=== PATIENT | female | born 1965 | race Caucasian/White ===

== ENCOUNTER 2016-10-14 08:23 | Day surgery (SDC) | payer OTHER ==
[2016-10-13 11:47] VITALS: Ht 157.5 cm; Wt 78.0 kg
[~2016-10-14] VITALS: Ht 157.5 cm; Wt 78.0 kg
[~2016-10-14 08:23] MED LIST: [UNRECOGNIZED DRUG - CODE] PO
[2016-10-14] MEDS ORDERED: GABA100C14 PO (09:23)
[2016-10-14] MEDS ORDERED: ATOR10TA65 PO (09:23)
[2016-10-14] MEDS ORDERED: LACTATED RINGER'S 1,000 ML IV* SCH (09:30)
[2016-10-14 09:38] VITALS: BP 138/66; PULSE 78; RESP 20
[2016-10-14 09:55] LABS: BASOPHILS % 0.5 % (0.0-2.0); EOSINOPHILS # 0.1 10^3/ul (0.0-0.5); EOSINOPHILS % 1.6 % (0.0-7.0); HEMATOCRIT 37.7 % (37.0-47.0); HEMOGLOBIN 13.2 g/dl (12.0-16.0); LYMPHOCYTES # 1.6 10^3/ul (0.8-2.9); LYMPHOCYTES % 30.2 % (15.0-51.0); MEAN CORPUSCULAR HEMOGLOBIN 31.1 pg (29.0-33.0); MEAN CORPUSCULAR VOLUME 88.9 fl (82.0-101.0); MONOCYTE # 0.3 10^3/ul (0.3-0.9); NEUTROPHIL # 3.3 10^3/ul (1.6-7.5); NEUTROPHILS % 61.7 % (39.0-77.0); PLATELET COUNT 313 10^3/UL (140-440); RED BLOOD COUNT 4.24 10^6/ul (4.20-5.40); UNCORRECTED WBC 5.3 10^3/ul (4.8-10.8); WHITE BLOOD COUNT 5.3 10^3/ul (4.8-10.8)
[2016-10-14 10:10] LABS: ALBUMIN 4.8 g/dl (3.3-4.9)
[2016-10-14 10:13] LABS: ALBUMIN/GLOBULIN RATIO 1.33; BILIRUBIN,INDIRECT 0.4 mg/dl (0-1.1); BILIRUBIN,TOTAL 0.4 mg/dl (0.2-1.3); CONDITION 1; TOTAL PROTEIN 8.4 g/dl (6.1-8.1)
[2016-10-14 10:27] LABS: CALCIUM 9.6 mg/dl (8.4-10.2); CREATININE 0.51 mg/dl (0.44-1.00); POTASSIUM 4.2 mmol/L (3.5-5.1)
[2016-10-14] MEDS ORDERED: METOCLOPRAMIDE 10 MG INJ IV PRN (11:30)
[2016-10-14] MEDS ORDERED: DIPHENHYDRAMINE 50 MG INJ IV PRN (11:30)
[2016-10-14] MEDS ORDERED: FENTAnyl 50 MCG/ML VIAL IV PRN ×2 (11:30)
[2016-10-14] MEDS ORDERED: HYDROmorphONE (0.2 MG/ML) 10ML SYG IV PRN ×3 (11:30)
[2016-10-14] MEDS ORDERED: MEPERIDINE 25 MG INJ IV PRN (11:30)
[2016-10-14] MEDS ORDERED: ONDANSETRON 4 MG INJ IV PRN (11:30)
[2016-10-14] MEDS ORDERED: FENTAnyl 50 MCG/ML VIAL ONE (11:39)
[2016-10-14] MEDS ORDERED: PROVENTIL HFA 6.7GM INHALER ONE (11:56)
--- NOTE | 2016-10-14 11:56 | PREOPHP ---
DATE OF ADMISSION: 10/14/2016 HISTORY OF PRESENT ILLNESS: A 51-year-old female, 3, para 3, with history of abnormal uteri ne bleeding. PAST MEDICAL HISTORY: High cholesterol. PAST SURGICAL HISTORY: Cholecystectomy. ALLERGIES: NO KNOWN ALLERGIES. FAMILY HISTORY: Noncontributory. PHYSICAL EXAMINATION: VITAL SIGNS: The patient is afebrile. Vital signs stable. HEAD, NECK AND CHEST: Within normal limits. ABDOMEN: Soft, nontender, and nondistended. PELVIC: Uterus is slightly enlarged. EXTREMITIES: Within normal limits. NEUROLOGIC: Within normal limits. IMPRESSION: Abnormal uterine bleeding. PLAN: Dilation and curettage. Risks, benefits and alternatives of the procedure were explained to the patient. The patient said she understood and gave informed consent for the procedure. Dictated By: KRISS SINGH/MEEK Conf#: [id number] DID#: [id number]
[2016-10-14] MEDS ORDERED: PROPOFOL 40 ML ONE (12:02)
[2016-10-14] MEDS ORDERED: SUCCINYLCHOLINE CHLORIDE 100 MG/5 ML SYG IV ONE (12:02)
[2016-10-14] MEDS ORDERED: NEOSTIGMINE 3 MG/3 ML SYRINGE ONE (12:02)
[2016-10-14] MEDS ORDERED: LIDOCAINE 2% (SDV) 5 ML INJ ONE (12:02)
[2016-10-14] MEDS ORDERED: GLYCOPYRROLATE 0.4 MG INJ ONE (12:02)
[2016-10-14] MEDS ORDERED: ROCURONIUM 50 MG INJ ONE (12:02)
[2016-10-14 12:41] VITALS: BP 144/70; PULSE 92; RESP 14
[2016-10-14 12:46] VITALS: BP 135/58; PULSE 88; RESP 12
[2016-10-14 12:51] VITALS: BP 126/59; PULSE 86; RESP 12
[2016-10-14 12:56] VITALS: BP 121/59; PULSE 86; RESP 12
--- NOTE | 2016-10-14 13:00 | OPR ---
DATE OF OPERATION: 10/14/2016 PREOPERATIVE DIAGNOSIS: Abnormal uterine bleeding. POSTOPERATIVE DIAGNOSIS: Abnormal uterine bleeding. OPERATION PERFORMED: Endocervical curettage, dilation and endometrial curettage. SURGEON: Renata LUONG ANESTHESIA: General. ANESTHESIOLOGIST: Josh Gipson MD PROCEDURE: The patient was taken to the operating room and placed on the operating table in supine position. After adequate general anesthesia was given, the patient was placed in dorsal lithotomy p osition. The area was prepared and draped in the usual sterile fashion. Weighted speculum was plac ed inside the vagina and tenaculum was used to grasp the anterior lip of the cervix. Using [place] n curet, endocervical curettage was performed and specimen obtained was sent to Pathology. Next, us ing cervical dilators, the cervical os was dilated. Using sharp curet, endometrial curettage was pe rformed and specimen obtained was sent to Pathology. All the instruments were removed. Adequate he mostasis was assured. Patient tolerated the procedure well. Patient was awakened from anesthesia a nd transferred to recovery in stable condition. ESTIMATED BLOOD LOSS: Minimal. COUNTS: All counts were correct. Dictated By: KRISS PARKER MD GD/NTS Conf#: [id number] DID#: [id number]
--- NOTE | 2016-10-15 15:53 | RADRPT ---
Vent Rate: 71 bpm RR Interval: 0 msec TX Interval: 146 msec QRS Duration: 82 msec QT Interval: 412 msec QTC Interval: 447 msec P-R-T [place]: 57 - 83 - 54 degrees Normal sinus rhythm Normal ECG Electronically Signed By: Hang Ku [id number]
== END 2016-10-14 14:23 | disposition home or self-care (01) ==
LOC: SDS 08:23
PROVIDERS: ATTEND Obstetrics & Gynecology
DX: N93.9 Abnormal uterine and vaginal bleeding, unspecified (principal); E78.00 Pure hypercholesterolemia, unspecified; E78.5 Hyperlipidemia, unspecified; Z90.49 Acquired absence of other specified parts of digestive tract; E66.01 Morbid (severe) obesity due to excess calories; Z68.31 Body mass index [BMI] 31.0-31.9, adult
CPT/HCPCS: 58120; 80053; 84703; 85025; 86850; 86870; 86900; 86901; 93005; J0330; J2175; J2405; J2710; J3010